=== PATIENT | female | born 1955 | race Two or more races ===

== ENCOUNTER 2024-03-04 14:58 | Inpatient (IN) | payer MEDICARE, OTHER ==
[~2024-03-04] VITALS: Ht 149.9 cm; Wt 77.0 kg
[2024-03-04 15:40] VITALS: PULSE 74; RESP 13; O2SAT 96
[2024-03-04] MEDS: SODIUM CHLORIDE 0.9% 1,000 ML IVB ONE (15:45)
[2024-03-04 16:10] LABS: Basophils # (auto) 0 10 ^3/uL (0-0.2); Basophils % (auto) 0.3 % (0.0-2.0); Eosinophils # (auto) 0.1 10 ^3/uL (0-0.8); Eosinophils % (auto) 0.9 % (0.0-7.0); Hematocrit 39.2 % (36.0-46.0); Hemoglobin 13.4 g/dL (12.2-16.2); Lymphocytes # (auto) 1.7 10 ^3/uL (0.4-5.4); Lymphocytes % (auto) 19.5 % (10.0-50.0); Mean Corpuscular Hemoglobin 30.2 pg (28.0-32.0); Mean Corpuscular Hgb Conc. 34.2 g/dL (32.0-36.0); Mean Corpuscular Volume 88.5 fL (80.0-100.0); Monocytes # (auto) 0.7 10 ^3/uL (0-1.3); Monocytes % (auto) 7.6 % (0.0-12.0); Neutrophils # (auto) 6.3 10 ^3/uL (1.6-8.6); Neutrophils % (auto) 71.7 % (37.0-80.0); Nucleated Red Blood Cells % 0.2 %; Red Blood Cells 4.43 10^6/uL (4.0-5.20); Red Cell Distribution Width 12.9 % (11.8-14.3); White Blood Cell 8.7 10^3/uL (4.4-10.8)
[2024-03-04 16:32] LABS: Alanine Aminotransferase 18 U/L (7-40); Alkaline Phosphatase 101 U/L (46-116); Anion Gap 8 (5-15); Aspartate Aminotransferase 11 U/L (13-40); BUN/Creatinine Ratio 12.4 (10.0-20.0); Bilirubin, Total 0.4 mg/dL (0.2-1.0); Blood Alcohol < 3.0 mg/dL (<10); Blood Urea Nitrogen 31 mg/dL (9-23); Calcium 9.2 mg/dL (8.7-10.4); Carbon Dioxide 25 mmol/L (20-30); Chloride 110 mmol/L (98-107); Glucose 114 mg/dL (74-106); Potassium 3.5 mmol/L (3.5-5.1); Sodium 143 mmol/L (136-145); Total Protein 5.9 g/dL (5.7-8.2)
[2024-03-04 19:15] VITALS: PULSE 74; RESP 13; O2SAT 98
[2024-03-04] MEDS ORDERED: ONDANSETRON HCL 4 MG/2 ML VIAL IV PRN (20:45)
[2024-03-04] MEDS: FAMOTIDINE (10MG/ML) 2ML VL IV SCH (22:01)
[2024-03-04] MEDS: SODIUM CHLOR 0.9% PF (SALINE LOCK) 10ML VIAL/SYR IV SCH (22:02)
[2024-03-04] MEDS ORDERED: MORPHINE SULFATE INJ 2 MG/ml SYRG IV PRN (23:45)
[2024-03-04] MEDS ORDERED: NITROGLYCERIN 0.4 MG SL TAB SL PRN (23:45)
[2024-03-05] VITALS (9 sets, daily range): BP systolic 138–199; BP diastolic 94–113; PULSE 58–93; RESP 18–21; TEMP 97.1–98.5; O2SAT 95–98
[2024-03-05 01:56] LABS: Urine Bacteria FEW /hpf (None Seen); Urine Blood TRACE /uL (Negative); Urine Clarity Clear (Clear); Urine Color Light-Yellow (Yellow); Urine Protein, UAD TRACE (Negative); Urine Specific Gravity 1.019 (1.001-1.035); Urine Urobilinogen Normal (Negative); Urine WBC 18 /hpf (0 - 5)
[2024-03-05 02:15] LABS: Amphetamine Screen, Urine Pos (NEGATIVE); Barbiturate Scree,Urine Neg (NEGATIVE); Benzodiazephine Screen, Urine Neg (NEGATIVE); Cannabinoid Screen, Urine Neg (NEGATIVE); Cocaine Screen, Urine Neg (NEGATIVE); Opiate Scree,Urine Neg (NEGATIVE); Phencyclidine Screen, Urine Neg (NEGATIVE)
[2024-03-05 04:53] LABS: Basophils # (auto) 0.1 10 ^3/uL (0-0.2); Basophils % (auto) 0.5 % (0.0-2.0); Eosinophils # (auto) 0.3 10 ^3/uL (0-0.8); Eosinophils % (auto) 2.6 % (0.0-7.0); Hematocrit 39.4 % (36.0-46.0); Hemoglobin 13.6 g/dL (12.2-16.2); Lymphocytes # (auto) 2.3 10 ^3/uL (0.4-5.4); Lymphocytes % (auto) 23.8 % (10.0-50.0); Mean Corpuscular Hemoglobin 30.6 pg (28.0-32.0); Mean Corpuscular Hgb Conc. 34.5 g/dL (32.0-36.0); Mean Corpuscular Volume 88.9 fL (80.0-100.0); Monocytes # (auto) 0.7 10 ^3/uL (0-1.3); Monocytes % (auto) 7.4 % (0.0-12.0); Neutrophils # (auto) 6.4 10 ^3/uL (1.6-8.6); Neutrophils % (auto) 65.7 % (37.0-80.0); Red Blood Cells 4.44 10^6/uL (4.0-5.20); Red Cell Distribution Width 12.7 % (11.8-14.3); White Blood Cell 9.8 10^3/uL (4.4-10.8)
[2024-03-05 05:25] LABS: Alanine Aminotransferase 15 U/L (7-40); Albumin 3.6 g/dL (3.2-4.8); Alkaline Phosphatase 90 U/L (46-116); Anion Gap 6 (5-15); Aspartate Aminotransferase 12 U/L (13-40); BUN/Creatinine Ratio 11.6 (10.0-20.0); Blood Urea Nitrogen 19 mg/dL (9-23); Calcium 8.9 mg/dL (8.7-10.4); Carbon Dioxide 23 mmol/L (20-30); Chloride 114 mmol/L (98-107); Glucose 102 mg/dL (74-106); Potassium 3.3 mmol/L (3.5-5.1); Sodium 143 mmol/L (136-145)
[2024-03-05 05:26] LABS: Bilirubin, Total 0.6 mg/dL (0.2-1.0); Total Protein 5.6 g/dL (5.7-8.2)
[2024-03-05] MEDS: hydrALAZINE HCL 20 MG/ML VL IV PRN (06:40)
[2024-03-05] MEDS ORDERED: ATOR20TA50 PO (11:44)
[2024-03-05] MEDS ORDERED: BACL10TA PO (11:44)
[2024-03-05] MEDS ORDERED: GABA-339 PO (11:44)
[2024-03-05] MEDS ORDERED: DICY20TA PO (11:44)
[2024-03-05] MEDS ORDERED: OMEP20TA PO (11:44)
[2024-03-05] MEDS ORDERED: LOSA100T14 PO (11:44)
[2024-03-05 13:12] LABS: Protein, Urine 41.2 mg/dL (0.0-11.9)
[2024-03-05 13:15] LABS: Creatinine, Urine 162.8 mg/dL (30.0-125.0)
[2024-03-05] MEDS: cefTRIAXone 1GM/50ML D5W 50 ML IV ONE (14:00)
[2024-03-05] MEDS: SODIUM CHLORIDE 0.9% 1,000 ML IV SCH (14:01)
[2024-03-05] MEDS: HYDROcodone-ACET 5/325MG TAB PO PRN (20:17)
[2024-03-05] MEDS: ATORVASTATIN 20 MG TAB PO SCH (22:37)
[2024-03-06] VITALS (7 sets, daily range): BP systolic 119–165; BP diastolic 66–101; PULSE 66–104; RESP 16–19; TEMP 97.4–98.8; O2SAT 95–98
[2024-03-06 05:41] LABS: Anion Gap 9 (5-15); Carbon Dioxide 23 mmol/L (20-30); Chloride 109 mmol/L (98-107); Potassium 3.4 mmol/L (3.5-5.1); Sodium 141 mmol/L (136-145)
[2024-03-06 05:43] LABS: Calcium 9.5 mg/dL (8.7-10.4)
[2024-03-06 05:46] LABS: Uric Acid 5.2 mg/dL (3.1-7.8)
[2024-03-06 05:47] LABS: BUN/Creatinine Ratio 18.3 (10.0-20.0); Blood Urea Nitrogen 19 mg/dL (9-23); Glucose 98 mg/dL (74-106)
[2024-03-06 05:49] LABS: Phosphorus 3.1 mg/dL (2.4-5.1)
[2024-03-06] MEDS: DOCUSATE SOD 100 MG CAP PO PRN (10:09)
[2024-03-06] MEDS: ACETAMINOPHEN 325 MG TAB PO PRN (10:10)
[2024-03-06] MEDS: GABAPENTIN 300 MG CAP PO SCH (10:11)
[2024-03-06] MEDS: NIFEdipine ER 30 MG TAB PO SCH (10:13)
[2024-03-06] MEDS: PANTOPRAZOLE 40 MG TAB PO SCH (10:13)
[2024-03-06] MEDS: cefTRIAXone 1GM/50ML D5W 50 ML IV SCH (10:14)
[2024-03-06 22:41] LABS: COVID19 ANTIGEN SOFIA FIA NEGATIVE (NEGATIVE)
[2024-03-07] VITALS (8 sets, daily range): BP systolic 108–152; BP diastolic 65–93; PULSE 55–95; RESP 16–18; TEMP 97.7–98.5; O2SAT 92–97
[2024-03-07] MEDS: POTASSIUM CHL 20 Meq TABLET PO ONE (13:27)
[2024-03-08 01:24] VITALS: BP 154/83; PULSE 93; RESP 18; TEMP 98.1; O2SAT 94
[2024-03-08 05:00] VITALS: BP 124/68; PULSE 95; RESP 18; TEMP 98.6; O2SAT 95
[2024-03-08 08:00] VITALS: PULSE 81
[2024-03-08 09:13] VITALS: BP 139/71; PULSE 77; RESP 20; TEMP 98.2; O2SAT 95
[2024-03-08 12:14] VITALS: BP 110/61; PULSE 66; RESP 20; TEMP 98.4; O2SAT 16
[2024-03-08] MEDS ORDERED: CIPR-173 PO (13:06)
[2024-03-08 16:46] VITALS: BP 117/69; PULSE 96; RESP 20; TEMP 98.4; O2SAT 95
== END 2024-03-08 16:42 | disposition home or self-care (01) | DRG 640 ==
LOC: EDBD 14:58 → ER 14:58 → TELE 23:40 → TELE-WESTW 03-05 01:54
PROVIDERS: ADMIT Nurse Practitioner Family; ATTEND Family Medicine
DX: E86.0 Dehydration (principal); N17.0 Acute kidney failure with tubular necrosis; N39.0 Urinary tract infection, site not specified; I12.9 Hypertensive chronic kidney disease with stage 1 through stage 4 chronic kidney disease, or unspecified chronic kidney disease; N18.30 Chronic kidney disease, stage 3 unspecified; Z20.822 Contact with and (suspected) exposure to COVID-19; Z86.73 Personal history of transient ischemic attack (TIA), and cerebral infarction without residual deficits; Z87.11 Personal history of peptic ulcer disease; Z83.3 Family history of diabetes mellitus; Z98.51 Tubal ligation status; Z82.49 Family history of ischemic heart disease and other diseases of the circulatory system
CPT/HCPCS: 36415; 70450; 80048; 80053; 80307; 80320; 81001; 82306; 82550; 82570; 84100; 84156; 84300; 84484; 84550; 85025; 87040; 87086; 87426; 93005; G0378; J3490